=== PATIENT | female | born 2000 | race Caucasian/White ===

== ENCOUNTER 2021-11-19 23:35 | Emergency (ER) | payer BC, SELFPAY ==
[2021-11-19 23:36] VITALS: BP 123/89; PULSE 109; RESP 15; TEMP 36.5; O2SAT 97; BMI 35.9
--- NOTE | 2021-11-20 00:02 | EDS_ITS ---
HPI History of Present Illness Chief Complaint: Mental Health Narrative Narrative: Patient is a 20-year-old female who has a past medical history of anxiety with depression. She states that her grandmother has Alzheimer's and its been worsening and this is caused stress in her life which has worsened her depression. She denies any homicidal or suicidal ideation. She denies any alcohol or illicit drug use. She states that friends and family have been worried about her as she has been self isolating more. The patient states that she feels like her symptoms are beginning to snowball and secondary to this comes to the hospital for evaluation. PFSH PFSH Home Medications multivitamin with folic acid [Thera] 1 tab PO DAILY 12/17/13 [History Last Taken Unknown] buspirone 7.5 mg PO BID 30 Days #60 tab 11/20/21 [Rx Last Taken Unknown] Allergy/AdvReac Type Severity Reaction Status Date / Time No Known Allergies Allergy Verified 11/19/21 23:41 Social History Smoking Status: Never smoker ROS [facility] ED Constitutional Constitutional ED: Denies chills or fever(s) ENT ENT ED: Denies sore throat Cardiovascular Cardiovascular: Denies chest pain Respiratory/Chest Respiratory/Chest: Denies cough or dyspnea Gastrointestinal Gastrointestinal: Denies abdominal pain, diarrhea, nausea or vomiting Genitourinary Genitourinary ED: Denies dysuria Musculoskeletal Musculoskeletal: Denies myalgias Integumentary Denies rash Neurologic Neurologic: Denies headache(s) Psychiatric Psychiatric: Reports anxiety and depression; Denies suicidal ideation or suicidal thoughts Hematologic/Lymphatic Hematologic/Lymphatic: Denies easy bleeding or easy bruising EXAM Physical Exam Const Vital Signs: 11/19/21 23:36 Temperature 97.7 F L Temperature Source Temporal Pulse Rate 109 H Respiratory Rate 15 Blood Pressure 123/89 H Blood Pressure Mean 100 Pulse Ox 97 Oxygen Delivery Method Room Air Positive well nourished and well developed General Appearance ED: well developed Eyes PERRL and EOMs intact bilaterally Neck supple Resp normal respiratory effort and clear to auscultation bilaterally Cardio regular rate and regular rhythm GI normal to inspection, nondistended, normoactive bowel sounds, non-tender, non- distended and no masses Auscultation: normoactive bowel sounds Palpation: soft Extremity normal to inspection Neuro oriented x3 and CN's II-XII intact bilaterally Sensorium / Orientation: alert Psych Psych Narrative: Patient has a tearful/anxious affect but no homicidal or suicidal ideation Skin no rashes or lesions noted MDM MDM MDM Narrative Medical decision making narrative: Patient presented to the ER slightly tachycardic but otherwise with stable vitals and in no acute distress. She reported increased stress in her life which was worsening her symptoms. However she does not have any homicidal or suicidal ideation. Patient also states that she has never attempted to hurt herself and she is never needed to be placed in a psychiatric hospital. Therefore the patient is low risk for suicide attempt and I do not feel there is need for pink slip. Patient will be treated with Ativan in the ER to reduce her symptoms and placed on BuSpar as she has failed Lexapro in the past. She will be advised to see a family doctor and/or counselor to help with symptoms and to return to the ER if she begins to have any thoughts of suicide. However at this time as patient has no homicidal or suicidal ideation I simply feel we should treat the underlying anxiety and depression and she is otherwise safe for discharge Discharge Plan Triage Chief Complaint: Mental Health ED Provider: Chico Monge Dx/Rx/DC Orders Clinical Impression: Depression with anxiety Instructions: Counseling for Depression, Depression: Tips to Help Yourself Prescriptions: New buspirone 7.5 mg tablet 7.5 mg PO BID 30 Days Qty: 60 RF: 0 No Action multivitamin with folic acid [Thera] 1 TABLET tablet 1 tab PO DAILY RF: 0 Primary Care Provider: Care Physician,No Primary Referrals: Kassandra Henderson MD [STAFF PHYSICIAN] - 5-7 Days Disposition Disposition: Home, Self Care
[2021-11-20] MEDS: LORazepam 2 MG/ML Syringe IM (00:23)
--- NOTE | 2021-11-20 11:00 | CM.ED ---
RAYMOND Note Referral Source: Case Find Referral Reason: Follow up to ED visit. RAYMOND reviewed ED census and noted that patient was seen in the ED for MH last night. SW called and left voice mail message following up with patient and requesting call back. Milady BLACK
--- NOTE | 2021-11-20 17:52 | CM.ED ---
RAYMOND Note SW called patient as she had come to the ED on 11/19/21 related to anxiety and depression. RAYMOND spoke to patient and explained [facility] Behavioral Health. Patient said that she is doing ok today. Patient said that she called [facility] as my friend goes there and got an appointment. Patient indicated that she was able to get into see someone soon. No other issues or concerns voiced. Milady BLACK
== END 2021-11-20 00:28 | disposition home or self-care (01) ==
PROVIDERS: Emergency Provider Emergency Medicine; Visit Provider Emergency Medicine
DX: F32.A Depression, unspecified (principal); F41.9 Anxiety disorder, unspecified
CPT/HCPCS: 96372; 99282

== ENCOUNTER 2022-01-25 18:40 | Emergency (ER) | payer BC, SELFPAY ==
[2022-01-25 18:41] VITALS: BP 135/85; PULSE 98; RESP 16; TEMP 36.9; O2SAT 99; BMI 39.4
--- NOTE | 2022-01-25 18:59 | US_ITS ---
STUDY: FIRST TRIMESTER OBSTETRICAL ULTRASOUND REASON FOR EXAM: Female, 21 years old vaginal bleeding with clots LMP: 11/28/2021 TECHNIQUE: Transvaginal TECHNICAL QUALITY: Adequate. PRIOR ULTRASOUND: None. FINDINGS: There is no demonstrated intrauterine gestational sac. The uterus measures 7.0 x 3.3 x 3.4 cm. There is no demonstrated uterine fibroid. Possible septate or arcuate uterus. Diffuse thickening of the endometrial complex measuring up to 12 mm with heterogeneous sonographic appearance. No focal fluid collection. The cervix is closed. The right ovary measures 3.3 x 1.8 x 1.4 cm. There is no right ovarian cyst. There is no visualized right adnexal mass or complex lesion. The left ovary measures 2.8 x 2.4 x 1.5 cm. There is no left ovarian cyst. There is no visualized left adnexal mass or complex lesion. There is no fluid in the cul de sac. US/Transvaginal w/Preg US IMPRESSION: 1. No intrauterine identified. No adnexal masses. 2. Diffuse heterogeneous thickening of the endometrial complex. No discrete mass. Electronically Signed: Lv Plata MD (Brooks) at 20:05 EDT ,
--- NOTE | 2022-01-25 19:00 | EDS_ITS ---
HPI HPI - Female History of Present Illness Chief Complaint: Vag Bld, Preg Narrative Narrative: Patient is a at approximately 8 weeks gestation who presents with vaginal bleeding. She states yesterday she began spotting all day. To arrival, she states she had increased vaginal bleeding almost to the point of her regular flow of her menses. Last menstrual period was mid to late November. She did 6 home tests which were positive. She had blood work drawn today in anticipation for an appointment with her NATIONAL RECRUITER, Dr. Violeta Richards, tomorrow. She denies any chest pain or lightheadedness. She endorses pelvic cramping and pain with vaginal bleeding. No other symptoms. [facility] Medical History (Updated 01/25/22 @ 21:35 by Jose Chery MD) Anxiety Depression Home Medications buspirone 7.5 mg PO BID 30 Days #60 tab 11/20/21 [Rx Last Taken Unknown] citalopram 10 mg PO DAILY 01/25/22 [History Last Taken Unknown] Allergy/AdvReac Type Severity Reaction Status Date / Time No Known Allergies Allergy Verified 01/25/22 18:41 Social History Smoking Status: Current every day smoker tobacco type: cigarettes ROS ROS ED ROS Narrative Constitutional: No fever, no chills. HEENT: No sore throat. No neck pain. No loss of vision. No rhinorrhea. Cardiovascular: No chest pain. No palpitations. No pedal edema. Respiratory: No cough, no shortness of breath. Abdominal: Suprapubic midline abdominal pain and cramping. No nausea. No vomi ting. Genitourinary: No dysuria. No hematuria. Positive vaginal bleeding with . Positive pelvic pain and cramping. Musculoskeletal: No myalgias. No arthralgias. Neurologic: No headaches. No dizziness. No lightheadedness. Skin: No rash. No change in color. Psychiatric: No depression. No anxiety. EXAM Physical Exam Narrative Exam Narrative: Afebrile. Vital signs noted. HEENT: Normocephalic. Atraumatic. PERRL, EOMI. Neck soft and supple. No point tenderness or step off. Cardiovascular: Regular rate and rhythm. No murmurs, rubs, or gallops appreciated. Respiratory: No tachypnea. Lungs clear to auscultation bilaterally. Gastrointestinal: Abdomen soft, nontender, with normoactive bowel sounds. No rebound or guarding. Neurological: Awake. Alert. Nonfocal, nonlateralizing. Skin: No rash. Normal color. No pallor. Musculoskeletal: No pedal edema. Full range of motion extremities. Genitourinary/gynecological: Chaperoned examination reveals a small amount of blood with small clots in the vaginal vault. Os closed. No adnexal tenderness. Const Vital Signs: 01/25/22 18:41 Temperature 98.4 F Temperature Source Temporal Pulse Rate 98 Respiratory Rate 16 Blood Pressure 135/85 H Blood Pressure Mean 101 Pulse Ox 99 Oxygen Delivery Method Room Air MDM MDM MDM Narrative Medical decision making narrative: Comprehensive work-up was pursued. I will perform a chaperoned pelvic examination with the RN. Ultrasound will be obtained along with ABO Rh and quantitative beta hCG with CBC. CBC shows normal white count of 10.8, hemoglobin normal at 13.7 with hematocrit 41.9. Platelet count normal at 378. Serum beta hCG is 1234. Blood type is O+. Her urinalysis shows no evidence of infection. There are RBCs, but I feel this may be a contaminant. I do not feel antibiotics are indicated as her only 0-5 WBCs. Her ultrasound does not show an intrauterine . As her quantitative beta- hCG is less than 2000, this may be an early versus threatened miscarriage. She states she has an appointment with Dr. Richards tomorrow. I advised her to keep this appointment. I was able to speak with Trista the cable cutter and swager who is on-call for Dr. Richards who agrees with close outpatient follow- up. Return instructions to the emergency department were reviewed. I feel she can be discharged safely home with follow-up tomorrow. Disposition is discharged home in stable condition. Lab Data Attestation: I reviewed the patient's lab results. Labs: Laboratory Results - last 24 hr 01/25/22 01/25/22 01/25/22 19:00 19:00 19:00 WBC 10.8 RBC 4.82 Hgb 13.7 Hct 41.9 MCV 86.9 MCH 28.4 MCHC 32.7 RDW Std Deviation 43.9 RDW Coeff of Niecy 13.8 Plt Count 378 MPV 9.9 Immature Gran % (Auto) 0.200 Neut % (Auto) 50.4 Lymph % (Auto) 40.8 [place] % (Auto) 5.8 Eos % (Auto) 2.3 Baso % (Auto) 0.5 Absolute Neuts (auto) 5.5 Absolute Lymphs (auto) 4.42 Nucleated RBC % 0 HCG, Quant 1234 H Urine Color Urine Clarity Urine pH Ur Specific [place] Urine Protein Urine Glucose (UA) Urine Ketones Urine Occult Blood Urine Nitrite Urine Bilirubin Urine Urobilinogen Ur Leukocyte Esterase Urine RBC Urine WBC Ur Squamous Epith Cells Urine Bacteria Urine Mucus Blood Type O POSITIVE 01/25/22 20:09 WBC RBC Hgb Hct MCV MCH MCHC RDW Std Deviation RDW Coeff of Niecy Plt Count MPV Immature Gran % (Auto) Neut % (Auto) Lymph % (Auto) [place] % (Auto) Eos % (Auto) Baso % (Auto) Absolute Neuts (auto) Absolute Lymphs (auto) Nucleated RBC % HCG, Quant Urine Color [place] Urine Clarity Cloudy Urine pH 5.0 Ur Specific [place] 1.025 Urine Protein 100 H Urine Glucose (UA) Normal Urine Ketones 5 H Urine Occult Blood 250 H Urine Nitrite Negative Urine Bilirubin Negative Urine Urobilinogen 1 H Ur Leukocyte Esterase 25 H Urine RBC > 100 SEEN Urine WBC 0-5 SEEN Ur Squamous Epith Cells 0 SEEN Urine Bacteria 1+ Urine Mucus 0 SEEN Blood Type Radiography Diagnostic Testing: Clinical Impression(s) from Imaging Studies Obstetrics Ultrasound 01/25/22 18:59 IMPRESSION: 1. No intrauterine identified. No adnexal masses. 2. Diffuse heterogeneous thickening of the endometrial complex. No discrete mass. Electronically Signed: Lv Plata MD (Brooks) at 20:05 EDT Reading Location ID and State: [facility] / [place] , Service support , Discharge Plan Triage Chief Complaint: Vag Bld, Preg ED Provider: Jose Chery Dx/Rx/DC Orders Clinical Impression: Threatened miscarriage, Vaginal bleeding affecting early Instructions: ED Possible Miscarriage ... Prescriptions: No Action buspirone 7.5 mg tablet 7.5 mg PO BID 30 Days Qty: 60 RF: 0 citalopram 10 mg Tablet 10 mg PO DAILY RF: 0 Primary Care Provider: Care Physician,No Primary Referrals: Violeta Richards MD [STAFF PHYSICIAN] - 1 Day Care Physician,No Primary [Primary Care Provider] - Disposition Disposition: Home, Self Care Discharge Date/Time: 01/25/22 21:57
[2022-01-25 19:21] LABS: Absolute Lymphocyte Count 4.42 X10^3/uL (0.83-4.51); Absolute Neutrophil Count 5.5 X10^3/uL (2.0-7.7); Basophil# 0.05 X10^3/uL; Basophil% 0.5 % (0-1); Eosinophil# 0.25 X10^3/uL; Eosinophils% 2.3 % (0-5); Hematocrit 41.9 % (37-47); Hemoglobin 13.7 g/dL (12.0-15.0); Lymphocyte # 4.42 X10^3/ul (0.83-4.51); Lymphocyte % 40.8 % (19-41); Mean Corp Hgb Conc 32.7 g/dL (32-36); Mean Corpuscular Hgb 28.4 pg (27.0-32.0); Mean Corpuscular Volume 86.9 fL (81-99); Mean Platelet Vol. 9.9 fl (6.2-12.0); Monocyte# 0.63 X10^3/uL; Monocyte% 5.8 % (0-10); NRBC Flagged by Analyzer 0 % (0-5); Neutrophil # 5.46 X10^3/uL (2.7-7.7); Neutrophil % 50.4 % (47-70); Platelet Count 378 K/mm3 (150-450); RBC Distribution Width CV 13.8 % (11.6-14.6); RBC Distribution Width SD 43.9 fl (35.1-43.9); Red Blood Count 4.82 M/mm3 (4.2-5.4); White Blood Count 10.8 K/mm3 (4.4-11.0)
[2022-01-25 20:00] LABS: hCG Titer Quant., Serum 1234 mIU/mL (1-3)
[2022-01-25 20:13] LABS: Mucous, Urine 0 SEEN /hpf (<or=2+); Squamous Epithelial Cells - UA 0 SEEN /hpf (5-10)
[2022-01-25 20:39] LABS: Color, Urine Amber (Yellow); Glucose, Dipstick Normal (Normal); Ketone-Dipstick 5 mg/dl (Negative); Leukocyte Esterase-Dipstick 25 /ul (Negative); Nitrite-Dipstick Negative (Negative); Occult Blood-Urine 250 /ul (Negative); Protein-Dipstick 100 mg/dl (Negative); Specific Gravity, Urine 1.025 (1.002-1.030); Urine Bilirubin Dipstick Negative (Negative); Urine Clarity Cloudy (Clear); Urine Urobilinogen 1 mg/dl (Normal)
[2022-01-25 20:54] LABS: Red Blood Cells-Urine > 100 SEEN /hpf (0-5); White Blood Cells 0-5 SEEN /hpf (0-5)
[2022-01-25 20:55] LABS: Bacteria 1+ /hpf (None Seen)
== END 2022-01-25 21:57 | disposition home or self-care (01) ==
PROVIDERS: Emergency Provider Emergency Medicine; Visit Provider Emergency Medicine
DX: O20.0 Threatened abortion (principal); F17.210 Nicotine dependence, cigarettes, uncomplicated; O99.331 Smoking (tobacco) complicating pregnancy, first trimester; Z3A.08 8 weeks gestation of pregnancy; O99.341 Other mental disorders complicating pregnancy, first trimester; F41.9 Anxiety disorder, unspecified; F32.A Depression, unspecified; Z79.899 Other long term (current) drug therapy
CPT/HCPCS: 76817; 81001; 84702; 85025; 86900; 86901; 99283; A4216

== ENCOUNTER 2024-11-03 19:20 | Inpatient (IN) | payer MEDICAID, SELFPAY ==
[2024-11-03 19:19] VITALS: BMI 41.7
[2024-11-03 19:56] LABS: Absolute Lymphocyte Count 3.59 X10^3/uL (0.83-4.51); Absolute Neutrophil Count 8.6 X10^3/uL (2.0-7.7); Basophil# 0.05 X10^3/uL; Basophil% 0.4 % (0-1); Eosinophil# 0.13 X10^3/uL; Hematocrit 38.3 % (37-47); Hemoglobin 12.9 g/dL (12.0-15.0); Lymphocyte # 3.59 X10^3/ul (0.83-4.51); Lymphocyte % 27.5 % (19-41); Mean Corp Hgb Conc 33.7 g/dL (32-36); Mean Corpuscular Hgb 27.9 pg (27.0-32.0); Mean Corpuscular Volume 82.9 fL (81-99); Mean Platelet Vol. 11.3 fl (6.2-12.0); Monocyte# 0.58 X10^3/uL; Monocyte% 4.4 % (0-10); NRBC Flagged by Analyzer 0 % (0-5); Neutrophil # 8.63 X10^3/uL (2.7-7.7); Neutrophil % 66.1 % (47-70); Platelet Count 350 K/mm3 (150-450); RBC Distribution Width CV 15.5 % (11.6-14.6); RBC Distribution Width SD 45.9 fl (35.1-43.9); Red Blood Count 4.62 M/mm3 (4.2-5.4); White Blood Count 13.1 K/mm3 (4.4-11.0)
[2024-11-03 20:03] VITALS: BP 127/89; PULSE 94
[2024-11-03 20:05] VITALS: PULSE 96; RESP 17; TEMP 36.3; O2SAT 99
[2024-11-03 20:30] LABS: Syphilis Antibodies Non-reactive
[2024-11-03] MEDS: miSOPROStol 25 MCG TABLET VAGINAL (21:00)
[2024-11-03 21:04] VITALS: BP 119/72; PULSE 85; PULSE 90; RESP 17; TEMP 36.4; O2SAT 98
[2024-11-04] VITALS (135 sets, daily range): BP systolic 98–192; BP diastolic 57–133; PULSE 74–149; RESP 16–20; TEMP 36.1–37.2; O2SAT 80–100
[2024-11-04] MEDS: Acetaminophen 500 MG Tablet PO (01:51)
[2024-11-04] MEDS: miSOPROStol 25 MCG TABLET VAGINAL (02:14)
[2024-11-04] MEDS: fentaNYL 100 MCG/2 ML Ampul IV ×2 (06:05→08:08)
[2024-11-04] MEDS: 0.9% Saline Lock 10 ML Syringe IV ×2 (06:05→08:11)
[2024-11-04] MEDS: Lactated Ringers 1,000 ML 999 ML IV ×2 (06:32→11:04)
--- NOTE | 2024-11-04 07:00 | PCM.HP.OB ---
HPI - General General Date of Admission: 11/03/24 Date of Service: 11/03/24 Chief Complaint: induction of labor HPI Narrative ELLEN WILKINSON, is a 23 F who presents induction of for maternal obesity. EFW 12% GBS negative 0.5cm/50/-2 Maternal Data Information Final SWETHA: 11/10/24 Gestational age: 39 PFSH PFSH Medical History Depression Anxiety Home Medications ?Medication ?Instructions ?Recorded ?Last Taken ?Type famotidine 20 mg tablet 20 mg PO BID acid reflux 11/03/24 11/03/24 History [id number] 1 mg tab PO 11/03/24 11/03/24 History tablet Allergy/AdvReac Type Severity Reaction Status Date / Time No Known Allergies Allergy Verified 11/03/24 20:10 Social History Smoking Status: Current every day smoker tobacco type: cigarettes History 1 Elective abortions Hx Para 0 Spontaneous abortions Hx # Term Pregnancies Ectopic pregnancies Hx # Pregnancies Multiple births # of living children ROS Constitutional Constitutional: Denies fatigue, fever(s) or malaise Eyes Eyes: Denies change in vision ENT HEENT: Denies dizziness or headache(s) Cardiovascular Cardiovascular: Denies chest pain, dyspnea or lightheadedness Respiratory/Chest Respiratory/Chest: Denies cough or dyspnea Gastrointestinal Gastrointestinal: Denies change in bowel habits Genitourinary Genitourinary: Denies burning urination or genital lesions Integumentary Integumentary: Denies rash Neurologic Neurologic: Denies confusion, dizziness, headache(s), numbness or weakness Vital Signs Vital Signs Vital Signs: 11/03/24 20:03 11/03/24 20:03 11/03/24 20:05 Temperature Temperature Source Pulse Rate 94 96 Respiratory Rate Blood Pressure 127/89 H BP Systolic 127 BP Diastolic 89 Pulse Ox 11/03/24 20:05 11/03/24 20:05 11/03/24 20:05 Temperature Temperature Source Temporal Pulse Rate Respiratory Rate 17 Blood Pressure BP Systolic BP Diastolic Pulse Ox 99 11/03/24 20:05 11/03/24 21:04 11/03/24 21:04 Temperature 97.4 F L Temperature Source Temporal Pulse Rate Respiratory Rate Blood Pressure 119/72 BP Systolic 119 BP Diastolic 72 Pulse Ox 11/03/24 21:04 11/03/24 21:04 11/03/24 21:04 Temperature 97.5 F L Temperature Source Pulse Rate 85 Respiratory Rate 17 Blood Pressure BP Systolic BP Diastolic Pulse Ox 11/03/24 21:04 11/03/24 21:04 11/03/24 21:04 Temperature Temperature Source Temporal Pulse Rate 90 Respiratory Rate 17 Blood Pressure BP Systolic BP Diastolic Pulse Ox 11/03/24 21:04 11/03/24 21:04 11/04/24 01:54 Temperature 97.5 F L Temperature Source Pulse Rate Respiratory Rate Blood Pressure 130/78 H BP Systolic 130 BP Diastolic 78 Pulse Ox 98 11/04/24 01:54 11/04/24 01:54 11/04/24 01:54 Temperature Temperature Source Temporal Pulse Rate 90 Respiratory Rate Blood Pressure BP Systolic BP Diastolic Pulse Ox 97 11/04/24 01:54 11/04/24 01:54 11/04/24 01:54 Temperature 97.0 F L Temperature Source Temporal Pulse Rate Respiratory Rate 18 Blood Pressure BP Systolic BP Diastolic Pulse Ox 11/04/24 01:54 11/04/24 01:54 11/04/24 06:26 Temperature 97.3 F L Temperature Source Temporal Pulse Rate Respiratory Rate 18 Blood Pressure BP Systolic BP Diastolic Pulse Ox 11/04/24 06:26 11/04/24 06:26 11/04/24 06:26 Temperature Temperature Source Pulse Rate 85 Respiratory Rate 16 Blood Pressure 138/88 H BP Systolic 138 BP Diastolic 88 Pulse Ox 11/04/24 06:26 11/04/24 06:26 Temperature 97.4 F L Temperature Source Pulse Rate Respiratory Rate Blood Pressure BP Systolic BP Diastolic Pulse Ox 98 Weight Weight: 96.978 kg Body Mass Index (BMI) 41.7 Physical Exam Const alert and no apparent distress General Appearance: cooperative HEENT normocephalic Resp normal respiratory effort Cardio regular rate GI soft to palpation GI Narrative: gravid, nontender, appropriate for gestational age Extremity no calf tenderness General Extremity: edema Skin no wounds Rashes: No rashes noted Psych activity/motor behavior normal Labs Labs Labs: Blood Type O POSITIVE Antibody Screen NEGATIVE Hct 38.3 % (37-47) Hgb 12.9 g/dL (12.0-15.0) Obstetrics Ultrasound Syphilis Total Ab Non-reactive Assessment & Plan (1) 39 weeks gestation of : (2) Maternal obesity affecting , antepartum: QUALIFIERS: Obesity type affecting : unspecified obesity Qualified Code(s): O99.210 - Obesity complicating , unspecified trimester (3) Encounter for induction of labor: PLAN: Plan Cytotec, neil/pit. Epidural prn GBS neg
[2024-11-04] MEDS: 0.9% Normal Saline Single 100 ML IV.SOLN. INTRA-UTER (07:22)
--- NOTE | 2024-11-04 07:25 | PN.OBGYN_ITS ---
Subjective Subjective Becker balloon placed with 50 cc. 2/-2 Objective Data Objective Data Vital Signs: Vital Signs Temp Pulse Resp BP Pulse Ox 97.4 F L 85 16 138/88 H 98 11/04/24 06:26 11/04/24 06:26 11/04/24 06:26 11/04/24 06:26 11/04/24 06:26 Weight: 96.978 kg Body Mass Index (BMI) 41.7 Lab / Micro Data 11/03/24 19:35 Labs: Laboratory Results - last 24 hr 11/03/24 19:35: WBC 13.1 H, RBC 4.62, Hgb 12.9, Hct 38.3, MCV 82.9, MCH 27.9, MCHC 33.7, RDW Std Deviation 45.9 H, RDW Coeff of Niecy 15.5 H, Plt Count 350, MPV 11.3, Immature Gran % (Auto) 0.600, Neut % (Auto) 66.1, Lymph % (Auto) 27.5, [place] % (Auto) 4.4, Eos % (Auto) 1.0, Baso % (Auto) 0.4, Absolute Neuts (auto) 8.6 H, Absolute Lymphs (auto) 3.59, Nucleated RBC % 0, Syphilis Total Ab Non- reactive, Blood Type O POSITIVE, Antibody Screen NEGATIVE NST FHR Rate Baby A Baseline: 145 Variability:: Moderate Accelerations:: 15 x 15 Decelerations:: None NST Reactive:: Yes FHR Category:: Category I Uterine Activity:: q 3 Assessment & Plan (1) Encounter for induction of labor: (2) 39 weeks gestation of :
--- NOTE | 2024-11-04 08:06 | PN.OBGYN_ITS ---
Subjective Subjective Patient seen at bedside. Walking around room. Tearful. Stated neil bulb is painful. Objective Data Objective Data Vital Signs: Vital Signs Temp Pulse Resp BP Pulse Ox 98.0 F 149 H 18 139/88 H 84 11/04/24 07:32 11/04/24 07:33 11/04/24 07:32 11/04/24 07:32 11/04/24 07:33 Weight: 213 lb 12.8 oz Body Mass Index (BMI) 41.7 Intake & Output: Intake and Output for Last 24 Hours 11/02/24 11/03/24 11/04/24 23:59 23:59 23:59 Intake Total 499.5 / 499.5 Balance 499.5 / 499.5 Lab / Micro Data 11/03/24 19:35 Labs: Laboratory Results - last 24 hr 11/03/24 19:35: WBC 13.1 H, RBC 4.62, Hgb 12.9, Hct 38.3, MCV 82.9, MCH 27.9, MCHC 33.7, RDW Std Deviation 45.9 H, RDW Coeff of Niecy 15.5 H, Plt Count 350, MPV 11.3, Immature Gran % (Auto) 0.600, Neut % (Auto) 66.1, Lymph % (Auto) 27.5, [place] % (Auto) 4.4, Eos % (Auto) 1.0, Baso % (Auto) 0.4, Absolute Neuts (auto) 8.6 H, Absolute Lymphs (auto) 3.59, Nucleated RBC % 0, Syphilis Total Ab Non- reactive, Blood Type O POSITIVE, Antibody Screen NEGATIVE Assessment & Plan (1) Encounter for induction of labor: (2) Maternal obesity affecting , antepartum: QUALIFIERS: Obesity type affecting : unspecified obesity Qualified Code(s): O99.210 - Obesity complicating , unspecified trimester (3) 39 weeks gestation of : (4) Anxiety: (5) Depression: PLAN: Plan Pull on Neil bulb when appropriate NST reactive Pain medications when indicated Start Pitocin at 2 mu/min and increase per policy
[2024-11-04] MEDS: LACTATED RINGERS 500 ML 999 ML IV (09:52)
[2024-11-04] MEDS: fentaNYL-bupivacaine (epidural) 100 ML BAG EPIDURAL (10:21)
--- NOTE | 2024-11-04 12:14 | NURSING ---
1145-placed neil, however no urine return noted. will continue to monitor.
[2024-11-04] MEDS: Amnioinfusion- 0.9% NS 1,000 ML IV.SOLN. 1000 ML INTRA-UTER (13:05)
[2024-11-04] MEDS: Lactated Ringers 1,000 ML 200 ML IV ×2 (13:06→18:07)
[2024-11-04] MEDS: Ondansetron 4 MG/2 ML Vial IV (14:38)
--- NOTE | 2024-11-04 16:35 | PCM.PN.CNM ---
Subjective Subjective Patient currently getting epidural replaced due to catheter coming out. Currently pushing. Objective Data Objective Data Vital Signs: Vital Signs Temp Pulse Resp BP Pulse Ox 98.6 F 93 16 139/68 H 99 11/04/24 15:41 11/04/24 16:34 11/04/24 15:41 11/04/24 16:34 11/04/24 16:31 Weight: 213 lb 12.8 oz Body Mass Index (BMI) 41.7 Intake & Output: Intake and Output for Last 24 Hours 11/02/24 11/03/24 11/04/24 23:59 23:59 23:59 Intake Total 2315.65 / 2315.65 Balance 2315.65 / 2315.65 Lab / Micro Data 11/03/24 19:35 Labs: Laboratory Results - last 24 hr 11/03/24 19:35: WBC 13.1 H, RBC 4.62, Hgb 12.9, Hct 38.3, MCV 82.9, MCH 27.9, MCHC 33.7, RDW Std Deviation 45.9 H, RDW Coeff of Niecy 15.5 H, Plt Count 350, MPV 11.3, Immature Gran % (Auto) 0.600, Neut % (Auto) 66.1, Lymph % (Auto) 27.5, [place] % (Auto) 4.4, Eos % (Auto) 1.0, Baso % (Auto) 0.4, Absolute Neuts (auto) 8.6 H, Absolute Lymphs (auto) 3.59, Nucleated RBC % 0, Syphilis Total Ab Non-reactive, Blood Type O POSITIVE, Antibody Screen NEGATIVE Assessment & Plan (1) Anxiety: (2) Depression: (3) Encounter for induction of labor: (4) Maternal obesity affecting , antepartum: QUALIFIERS: Obesity type affecting : unspecified obesity Qualified Code(s): O99.210 - Obesity complicating , unspecified trimester (5) 39 weeks gestation of : (6) Tobacco smoking affecting : PLAN: Plan Continue pushing with contractions Anticipate
[2024-11-04] MEDS: Oxytocin 15 Units/NS 250ml 15 UNITS/250 ML IV.SOLN 2 UNITS IV (17:16)
[2024-11-04] MEDS: Lidocaine 1% (20 ml mdv) 20 ML Vial INFILT (19:20)
[2024-11-04] MEDS: Ketorolac 30 MG/ML Syringe IV (19:38)
[2024-11-04] MEDS: Oxytocin 15 Units/NS 250ml 15 UNITS/250 ML IV.SOLN 83 UNITS IV (19:40)
--- NOTE | 2024-11-04 19:44 | EX.PCM.OBVAG ---
Assessment & Plan (1) Maternal exhaustion complicating labor and delivery: (2) Maternal obesity affecting , antepartum: QUALIFIERS: Obesity type affecting : unspecified obesity Qualified Code(s): O99.210 - Obesity complicating , unspecified trimester (3) 39 weeks gestation of : (4) Vacuum extractor delivery, delivered: Maternal Data Information Final SWETHA: 11/10/24 Gestational age: 39 1/7 Vaginal Delivery Maternal Presentation Maternal Presentation: Medically Indicated Induction Type of Induction: Becker Bulb and Cytotec Vaginal Delivery Information Procedure Performed: Vacuum Assisted Vaginal Delivery Station at time of placement: +3 Number of vacuum pulls: 2 Number of vacuum pop offs: 0 Surgeon/Practitioner: Violeta Richards Date of Procedure: 11/04/24 Pre-Procedure Diagnosis: maternal exhaustion Post-Procedure Diagnosis: same Type of anesthesia: Epidural and Local with 1% Lidocaine (10 cc) Special Medications: toradol Estimated Blood Loss: 400 Time of Delivery: 19:06 Findings Description of procedure: Patient was complete and pushing for over 3 hours. She was becoming frustrated and tired. Maternal pushing efforts had been effective. She was -1 station when she began pushing and she was plus 3 out of 5 when I came to assess her moderate caput, estimated weight less than 4000 g clinically and pelvis clinically adequate to expect vaginal delivery. Epidural was adequate and Becker catheter was in place. I discussed with the patient and her family risk benefits and alternatives to trial of vacuum-assisted vaginal delivery and they desired to proceed. Position was GENIE. The vacuum was placed on the flexion point of suction created 550 mmHg. Pulled with 1 pull with significant descent, with the next contraction with another pull of vacuum and maternal pushing the infant began to crown and the vacuum was removed with no pop offs. A vigorous male infant was delivered GENIE over a second-degree perineal laceration. The remainder the infant was delivered with maternal pushing and gentle traction only in less than 15 seconds. The Pitocin infusion was initiated for active management of the third stage. The cord was clamped and cut after 1 minute. The was attended to by the waiting nursing staff. The placenta was delivered spontaneously and intact. The cervix and vagina were intact. The second-degree perineal laceration was repaired with 3-0 Vicryl Rapide suture in a running standard fashion. Sponge and needle counts were correct. A vaginal sweep was completed by pa. 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
[2024-11-04] MEDS: Acetaminophen 500 MG Tablet 1000 MG PO (20:07)
--- NOTE | 2024-11-04 20:15 | NURSING ---
1829-charted under nuha cruz occurred at this time by nuha martin
[2024-11-04] MEDS: Benzocaine/Lanolin/Aloe Vera 85 GM Spray 1 SPRAY TOPICAL (21:27)
[2024-11-05] VITALS (9 sets, daily range): BP systolic 116–145; BP diastolic 59–85; PULSE 87–115; RESP 16–18; TEMP 36.3–36.7; O2SAT 97–99
[2024-11-05] MEDS: Ibuprofen 600 MG Tablet PO ×3 (02:01→17:35)
[2024-11-05] MEDS: Acetaminophen 500 MG Tablet 1000 MG PO ×3 (04:17→20:19)
--- NOTE | 2024-11-05 07:28 | PCM.PN.CNM ---
Subjective Subjective Patient seen at bedside. Denies any pain. Ambulating and voiding without difficulty. Lochia decreasing. She is breast feeding and supplementing with formula. Objective Data Objective Data Vital Signs: Vital Signs Temp Pulse Resp BP Pulse Ox O2 Del Method 97.6 F L 90 16 123/78 H 99 Room Air 11/05/24 04:15 11/05/24 04:15 11/05/24 04:15 11/05/24 04:15 11/05/24 04:15 11/05/24 04:15 Oxygen Delivery Method Room Air Weight: 213 lb 12.8 oz Body Mass Index (BMI) 41.7 Intake & Output: Intake and Output for Last 24 Hours 11/03/24 11/04/24 11/05/24 23:59 23:59 23:59 Intake Total 3945.45 / 3945.45 Output Total 1100 / 1100 400 / 400 Balance 2845.45 / 2845.45 -400 / -400 Lab / Micro Data Attestation: I reviewed the patient's lab results. 11/03/24 19:35 ROS Eyes Eyes: Denies blurry vision, change in vision or spots in vision ENT HEENT: Denies dizziness or headache(s) Cardiovascular Cardiovascular: Denies abdominal pain, chest pain or dyspnea Respiratory/Chest Respiratory/Chest: Denies cough, dyspnea, shortness of breath at rest or shortness of breath with exertion Gastrointestinal Gastrointestinal: Denies abdominal pain, diarrhea or vomiting Genitourinary Genitourinary: Denies change in urinary stream, difficulty urinating or dysuria Musculoskeletal Musculoskeletal: Reports none Integumentary Integumentary: Denies rash Neurologic Neurologic: Denies dizziness, headache(s), memory loss or weakness Physical Exam Const alert and no apparent distress General Appearance: cooperative and comfortable Exam Limitations: no limitations HEENT normocephalic Eyes General Eye: normal appearance of both eyes Neck full ROM General: normal visual inspection Chest Chest: symmetrical chest wall rise Resp normal respiratory effort and normal air movement Effort and Inspection: symmetric chest movement Auscultation: clear to auscultation bilaterally Cardio regular rate and regular rhythm GI normal to inspection, nondistended, normoactive bowel sounds Back/Spine normal ROM Extremity full ROM and no calf tenderness General Extremity: normal exam except as noted Skin no rashes or lesions noted Neuro oriented x3 Speech: speech normal Psych mental status grossly normal Thought Process: normal thought process Assessment & Plan (1) Vacuum extractor delivery, delivered: (2) Anxiety: (3) Depression: (4) Tobacco smoking affecting : (5) Care and examination of lactating mother: (6) Laceration, obstetrical, second degree: PLAN: Plan PPD 1 VAVD Ambulating and voiding without difficulty support Anticipate discharge home tomorrow
[2024-11-06 01:57] VITALS: BP 123/59; PULSE 101
[2024-11-06] MEDS: Ibuprofen 600 MG Tablet PO ×2 (02:01→13:34)
[2024-11-06 02:15] VITALS: RESP 16; TEMP 36.8
[2024-11-06 08:50] VITALS: BP 132/78; PULSE 108; RESP 108; TEMP 36.4; O2SAT 98
[2024-11-06 09:03] VITALS: BP 132/78; PULSE 101; O2SAT 98
[2024-11-06] MEDS: Acetaminophen 500 MG Tablet 1000 MG PO (09:11)
[2024-11-06] MEDS: Senna/Docusate Sodium 1 Tablet PO (09:11)
--- NOTE | 2024-11-06 09:54 | CASEMGMT ---
Social Work Assessment Labor and Delivery Unit Patient Address: [address] [place] [address] Phone number: [phone] Date of Referral: 11/05/24 Time of Referral:? 1934 Referred By: Dr. Richards Date of Intervention: ??11/06/24 Time of Intervention:? 929 Reason for Referral:? mental health Sw completed chart review and acknowledges social work consult due to maternal mental health history. Sw presented to bedside and introduced self to mother of baby (HALLEY- Mary) and father of baby (FOB- Krishan). Sw explained reason for sw involvement and completed psychosocial assessment. History obtained from: medical records, MOB and FOB Household composition: Currently residing in the family home is MOB, JOSE, Prem's grandpa and baby when ready for discharge. Patient's parent/guardian status:? ?HALLEY states that she and JOSE have been together for 4-5 years. They have known each other since Middle school and high school. HALLEY denies any problems with domestic violence or intimate partner violence. Medical History: ?HALLEY is 23 year old female who is 3, para 0- now 1 following labor and delivery of . HALLEY received routine care during with [facility]. HALLEY presented to hospital for scheduled induction of labor and delivered baby on 11/04/24 at 39 weeks gestation via vaginal delivery. Baby boy, named Adalid was born weighing 6lb 12oz with apgars of 8 and 9 at one and five minutes of life, respectfully. HALLEY is bottle feeding and baby will be followed by Dr. Vieira for pediatrics. Educational Status:?HALLEY and FOB both graduated from high school, both parents deny problems with reading, learning or comprehension. Financial Status: Both parents are gainfully employed outside of the home. FOB works for [employer] and HALLEY works for [employer]. Supplies: All necessary baby supplies obtained, including: car seat, safe sleep space, clothes, diapers and wipes. Childcare/Caregiver(s):? HALLEY states that she will be the primary caregiver to baby along with JOSE when he is not working. Transportation:?? Both parents have their drivers license and reliable means of transportation. No barriers to transportation at this time. Programs/Agencies Involved: HALLEY has insurance through [employer] and [employer]. HALLEY states that she also has WIC. ??? Children Services/Legal Issues:??? No history of children services involvement, no issues or concerns warranting referral to be made at this time. Behavioral Health Issues: ??Mental Health History: JOSE states that he has not been diagnosed with any mental health diagnoses, but has felt anxious during labor and delivery. HALLEY states that she has been diagnosed with anxiety and depression. HALLEY states that she was diagnosed with these diagnoses when she was in middle school, and was previously prescribed medication but felt as though it numbed her so she stopped taking it years ago. HALLEY reports that she also tried to engage in counseling but she hated it. HALLEY is not prescrivbed any medications to help her manage her mental health symptoms at this time. Nursing staff expressed concerns that HALLEY appeared to have flat affect, and was expressing that she was feeling anxious and depressed. HALLEY completed [place] Depression Scale and her score was a 4. Sw provided education and support. Sw asked HALLEY if she is receptive to trying a different medication to help her manage her mental health symptoms during this period, and MOB stated as a last resort. Sw asked HALLEY what her symptoms would need to look like for her to recognize that she needs something to help her manage them. HALLEY stated that if she was able to recognize that she is anxious all of the time or sad/ depressed and it is impacting how she interacts with baby. Sw encouraged HALLEY to talk to her OBGYN about her symptoms and re-evaluate need for medications at her follow up apt. HALLEY expressed understanding. ??? Substance Use History:Parents deny substance use prior to and during . ?? Family History:?Parents deny family history of substance use or significant mental health diagnoses. ? Drug Screens: NO drug screens observed in chart review. Family/Social Stressors:? Parents report that at this time they are struggling with coping as being new parents. JOSE states that he is feeling scared, and like he is already failing as a new dad. When prompted to explain more, JOSE states that his father was not involved a lot when he was growing up because he was working all the time, and JOSE is already feeling pressure to work but also wants to be present to help care for baby. HALLEY states that she is feeling anxious and also scared. HALLEY states that she is extremely tired following a long labor and delivery. When encouraged to explain more, MOB stated that she isn't able to pinpoint exactly where her fear is coming from. Much active listening and support and empathy provided. Education provided to parents on how to assess baby for what his needs may be when he is crying. Sw also stated that baby will want to be held and nurtured and encouraged parents to take turns holding baby so the other parent is able to get some rest. Support Systems: MOB states that FOB, her sister and sister in law are her biggest supports. Depression/Shaken Baby/Safe Sleeping: Sw educated parents on signs and symptoms of baby blues and mood and anxiety disorders. Parents were eager to learn about these issues, and able to identify that MOB may already be struggling with some of these symptoms (fearful, overwhelmed, anxious). MOB states that if she were to struggle FOB would be able to recognize that she is having a hard time and would know how to help and support her. Sw educated parents on shaken baby prevention and ABCs of safe sleep. Parents express understanding. ASSESSMENT:? MOB and baby admitted following labor and delivery of . MOB experiencing some symptoms of baby blues/ depression. MOB states that she feels a billingsley with baby and was observed to feed, hold and care for baby in appropriate and loving manner. FOB talkative and states that he is feeling anxious, but is also worried that he may be undiagnosed diabetic and may have some blood sugar issues going on. FOB encouraged to get connected to PCP who can do testing and help FOB figure out any medical issues that he may have. Both parents encouraged to take care of their physical and mental healths so that they are the best version of themselves to be able to be the best parent to baby. Both parent expressed understanding and willingness to do so. MOB was more open and talkative than what staff had previously observed. MOB made eye contact and participated in completion of assessment. MOB was appropriately tearful, but at times not able to explain why she was crying. PLAN:?? No other services requested or indicated. MOB and baby to be discharged when medically ready. Parents were provided literature regarding: signs and symptoms of baby blues and mood and anxiety disorders, Help Me Grow, shaken baby prevention, ABCs of safe sleep and a list of county resources that are available for them should any needs present themselves. Hans Mccarthy, MATERIAL REPROCESSING ASSOCIATE, GEOTHERMAL SYSTEM INSTALLER
--- NOTE | 2024-11-06 10:23 | PCM.PN.BLA ---
Progress Note Pain well-controlled. Average lochia. Urinating and tolerating regular diet. Has not had a bowel movement yet but is taking stool softeners. States she is very tired and stressed out because of that and feeling somewhat anxious. She denies feeling anxious or depressed the last couple weeks of her . She denies any thoughts of harming herself or others. She has been on antidepressants in the past but cannot remember what she was on and it has been several years since she has been on anything. She denies any anxiety or depression the last couple of weeks of the . She denies any headache or visual changes. Physical Exam Const alert and no apparent distress Narrative: Fundus firm, below umbilicus. Assessment & Plan Assessment/Plan (1) Laceration, obstetrical, second degree: (2) Vacuum extractor delivery, delivered: PLAN: Plan day 1 status post vacuum-assisted vaginal delivery. Reviewed discharge instructions. Desires discharge home today. Declines medication for anxiety or depression and states she has support at home. Follow-up in the office within 1 week or as needed.
--- NOTE | 2024-11-06 10:29 | DS.PCM_ITS ---
Providers Date of Admission: 11/03/24 Primary Care Physician: Ana Primary Care Phys Reason For Visit: VAGINAL DELIVERY Diagnosis Discharge Diagnosis (1) Laceration, obstetrical, second degree: Status: Acute Code(s): O70.1 - Second degree perineal laceration during delivery (2) Vacuum extractor delivery, delivered: Status: Acute Code(s): O75.9 - Complication of labor and delivery, unspecified Plan day 1 status post vacuum-assisted vaginal delivery. Reviewed discharge instructions. Desires discharge home today. Declines medication for anxiety or depression and states she has support at home. Follow-up in the office within 1 week or as needed. Medications at Discharge Home Medications famotidine 20 mg tablet 20 mg PO BID acid reflux 11/03/24 [id number] 1 mg tablet tab PO 11/03/24 acetaminophen 500 mg tablet (Acetaminophen Extra Strength) 1,000 mg (2 x 500 mg) PO Q8H PRN PRN fever or pain 20 days #60 tabs 11/06/24 ibuprofen 600 mg tablet 600 mg PO Q6H PRN Pain 20 days #60 TABLETS 11/06/24 Hospital Course Operations - (Vacuum-assisted vaginal delivery on 11/04/2024) Procedures None Summary of Care Provided Minutes Spent on Discharge: 23 Hospital Course: 23-year-old [place] parous patient admitted for 39-week induction due to maternal obesity. She had Cytotec induction started on 11/03/2024. She then had a Becker placed on the morning of 11/04/2024. She had spontaneous rupture of membranes. She pushed for over 3 hours and had significant descent. She then had a vacuum- assisted vaginal delivery the evening of 11/04/2024. She had a second-degree laceration with repair. Her course was otherwise unremarkable and by day #2 she was ambulating and tolerating regular diet. She was given routine discharge instructions and prescriptions. She is to follow-up in the office within 1 week or as needed. administrative services director saw patient while she was admitted. Patient declined need for treatment for anxiety or depression at this time. Weight / BMI Weight Weight: 96.978 kg Body Mass Index (BMI) 41.7 ABG / Lab / Microbiology Data 11/03/24 19:35 D/C Instructions Discharge Diet: No restrictions May resume sexual activity in: 6 weeks Call your doctor if your incision/area has: Continuous Slow Oozing, Sudden Increased Bleeding, Foul Smelling Discharge and Swelling at the incision site Call your doctor if you observe: Fever of 101 or Higher and Inability to urinate DC O2, CPAP, BIPAP Needs Home O2 Discharge instructions: No Please Follow Up With: Trista Navarro CNM When: Follow up with our office in 1-2 and 6 weeks or as needed. [phone] Call or send Ayi Laile message Meaningful Use Info Meaningful Use Meaningful Use Diagnoses (Choose all that apply): None applicable Ischemic Stroke Statin Dosing Therapy Reference: STATIN DOSE THERAPY REFERENCE: * Patients > 75 years receive moderate or high dose statin therapy. * Patients 75 years or YOUNGER should receive HIGH intensity statin dose unless contraindicated. You will be required to document reason for non-treatment if statin daily dose does not meet guidelines. HIGH DOSE STATIN THERAPY DAILY Atorvastatin > than or = to 40 mg Rosuvastatin > than or = to 20 mg Amlodipine + Atorvastatin > than or = to 2.5/40 mg Ezetimibe + Simvastatin 10/80 mg Simvastatin 80mg Discharge Plan Admission Admit Date/Time: 11/03/24 19:20 Primary Reason for Your Visit: Induction of labor and vacuum-assisted vaginal delivery Attending Provider: Violeta Richards Primary Care Provider: Ana Winters Primary Discharge Orders/Prescriptions Prescriptions: New acetaminophen [Acetaminophen Extra Strength] 500 mg tablet 1,000 mg PO Q8H PRN PRN (Reason: fever or pain) 20 Days Qty: 60 0RF ibuprofen 600 mg tablet 600 mg PO Q6H PRN (Reason: Pain) 20 Days Qty: 60 1RF Continued famotidine 20 mg tablet 20 mg PO BID [id number] 1 mg tablet PO Referrals / Follow Up: Care PhysicianAna Primary [Primary Care Provider] - Disposition Disposition (needs filled in before D/C Order can be placed): Home, Self Care
[2024-11-06 13:30] VITALS: BP 136/83; PULSE 107; RESP 16; TEMP 36.1; O2SAT 98
[2024-11-06 13:33] VITALS: BP 136/83; PULSE 107
--- NOTE | 2024-11-10 16:14 | NURSING ---
F/up phone call performed. Pt. denies s+s of complications. No questions or concerns at this time. Informed she can call at anytime if questions or concerns arise.
== END 2024-11-06 17:45 | disposition home or self-care (01) | DRG 560 ==
PROVIDERS: Admitting Provider Obstetrics & Gynecology; Referring Provider Obstetrics & Gynecology; Visit Provider Obstetrics & Gynecology
DX: O99.214 Obesity complicating childbirth (principal); Z37.0 Single live birth; O99.344 Other mental disorders complicating childbirth; F17.210 Nicotine dependence, cigarettes, uncomplicated; F32.A Depression, unspecified; F41.9 Anxiety disorder, unspecified; O99.334 Smoking (tobacco) complicating childbirth; O70.1 Second degree perineal laceration during delivery; O75.81 Maternal exhaustion complicating labor and delivery; Z3A.39 39 weeks gestation of pregnancy
CPT/HCPCS: 59025; 59050; 76815; 85025; 86780; 86850; 86900; 86901; A4216; J2405

== ENCOUNTER 2024-11-30 16:58 | Emergency (ER) | payer MEDICAID, SELFPAY ==
[2024-11-30 16:58] VITALS: BP 130/86; PULSE 75; RESP 16; TEMP 36.7; O2SAT 98; BMI 36.3
== END 2024-11-30 18:15 | disposition left against medical advice (07) ==
LOC: ED 18:19
DX: R10.9 Unspecified abdominal pain (principal)